=== PATIENT | female | born 1970 | race Caucasian/White ===

== ENCOUNTER 2020-06-29 18:55 | Emergency (ER) | payer MEDICAID, SELFPAY ==
[2020-06-29] VITALS (7 sets, daily range): BP systolic 110–164; BP diastolic 60–101; PULSE 88–138; RESP 16–28; TEMP -17.7–36.8; O2SAT 98–100; BMI 33.4
[2020-06-29] MEDS: Famotidine/PF 20 MG/2 ML VIAL IVPUSH (19:05)
[2020-06-29] MEDS: 0.9 % Sodium Chloride 1,000 ML 999 ML IVCONT (19:05)
[2020-06-29] MEDS: EPINEPHrine 1 MG/ML VIAL 0.3 MG IM ×2 (19:05→19:20)
[2020-06-29] MEDS: ondansetron HCL 4 MG/2 ML VIAL IVPUSH (19:20)
--- NOTE | 2020-06-29 19:24 | ED.ALLEREA ---
HPI - Allergic Reaction General Chief complaint: Allergic Reaction Stated complaint: DIFF BREATHING, ALLERGIC REACTION Time Seen by Provider: 06/29/20 19:02 Source: patient and EMS Limitations: language barrier History of Present Illness HPI narrative: 49-year-old female with history of prior anaphylaxis presents via EMS for allergic reaction. At present, patient is tachycardic, short of breath, has full body erythema and hives and his tremors. Patient is an anaphylaxis at this time. Review of systems and complete physical exam deferred at this time. MD complaint: allergic reaction and hives Onset (ago): hour(s) (Within the hour of arrival) Exposure: unknown and food Symptoms: difficulty breathing, dizziness and abdominal pain Severity: similar to previous episodes Treatment prior to arrival: none Previous Allergic Reaction History: prior ED visit(s) and anaphylaxis Related Data Previous Rx's Medication Instructions Recorded epinephrine [EpiPen 2-Christopher] 0.3 mg IM Q10M PRN #2 ea 06/29/20 famotidine [Pepcid] 20 mg PO BID 3 Days #6 tab 06/29/20 Allergies Allergy/AdvReac Type Severity Reaction Status Date / Time diphenhydramine AdvReac Shakiness Verified 06/29/20 19:23 [From Benadryl] Penicillin Allergy Unknown Swelling Uncoded 06/29/20 19:23 Review of Systems Review of Systems: Review of systems unable to be completed secondary to medical condition, note states mental condition, this an error Yes Unobtainable due to mental condition PMFSH Past Medical History Attestation statement: The following information was validated with the patient. Source: old records reviewed Medical History Anaphylactic reaction Fatty liver Social History Social History Advance Directives: No Advance Directives Information Provided: Yes Physical Exam Vital Signs: Vital Signs: Last Vital Signs Temp 98.2 F 06/29/20 19:24 Pulse 88 06/29/20 22:20 Resp 16 06/29/20 22:20 BP 110/62 06/29/20 22:20 Pulse Ox 99 06/29/20 22:20 Body Mass Index 33.4 Appearance: Alert. Oriented X3. Moderate distress. Eyes: Pupils equal, round and reactive to light. ENT: Pharynx normal. Neck: Normal inspection. Neck supple. CVS: Tachycardic heart rate and rhythm. Pulses normal. Respiratory: Moderate respiratory distress. Breath sounds wheezing Abdomen: Soft and tender to palpation diffusely Skin: Diffusely erythematous and with hives Skin warm and dry. Normal skin color. Normal skin turgor. Extremities: No lower extremity edema. Neuro: No motor deficit. No sensory deficit. Course Course Course Narrative: 49-year-old female presents via EMS for anaphylactic reaction. Dr Romero and this INSPECTOR PACKAGER at bedside immediately upon arrival, epinephrine IM, Solu-Medrol, Pepcid, and saline ordered immediately. Approximately 11 minutes after 1st dose of epinephrine, 2nd dose given, heart rate dropping into the 90s, respiration rate decreased to the low 20s, skin is now pink face no longer flushed, lungs are clear. 7:45 p.m. respiration rate 20, lung sounds clear, no rash noted, speaking in full sentences, slight tremor noted to the hands. Appearance: Alert. Oriented X3. Minimal distress. Eyes: Pupils equal, round and reactive to light. EOMI ENT: Pharynx normal. No tracheal stridor noted Neck: Normal inspection. Neck supple. CVS: Normal heart rate and rhythm. Pulses normal. Respiratory: No respiratory distress. Lung sounds clear to auscultation all lobes Abdomen: Soft and nontender. Skin: Skin warm and dry. Normal skin color. Normal skin turgor. Extremities: No lower extremity edema. Neuro: No motor deficit. No sensory deficit. At 10:00 p.m. patient still a bit tremorous, with no other symptoms. Appearance: Alert. Oriented X3. No acute distress. Eyes: Pupils equal, round and reactive to light. ENT: Pharynx normal. Neck: Normal inspection. Neck supple. CVS: Normal heart rate and rhythm. Pulses normal. Respiratory: No respiratory distress. Breath sounds normal. Abdomen: Soft and nontender. Skin: Skin warm and dry. Normal skin color. Normal skin turgor. Extremities: No lower extremity edema. Neuro: No motor deficit. No sensory deficit. Plan of care is to discharge home with prescription for EpiPen, Pepcid and for close follow-up with primary care physician and allergy testing. Patient and patient's family verbalized understanding of and agrees to plan of care discharge home. MDM - Allergic Reaction Differential Diagnosis Differential diagnosis: Likely anaphylaxis Medical Records Attestation: I reviewed the patient's medical records. Critical Care Time Critical Care Time Critical Care Time: Yes Total Critical Care Time: 65 Attestation: I have personally provided critical care time exclusive of time spent on separately billable procedures. Time includes review of laboratory data, radiology results, discussion with consultants, and monitoring for potential decompensation. Interventions were performed as documented. Discharge Plan Discharge Clinical Impression: Anaphylaxis Qualifiers: Encounter type: initial encounter Qualified Code(s): T78.2XXA - Anaphylactic shock, unspecified, initial encounter Patient Disposition: Home, Self-Care Instructions: Epinephrine (By injection), Food Allergy (ED), Anaphylaxis (ED) Additional Instructions: Se le evalu? apple reacci?n anafil?ctica a apple sustancia desconocida. Usted debe hacer un seguimiento con thompson m?dico de atenci?n primaria para la alergia. le hemos recetado plumas epi, por favor recoja esto esta noche. Utilice Pepcid cada 12 horas kd los pr?ximos 3 d?as. Si nota alguna dificultad para respirar, dificultad para respirar o cualquier s?ntoma que haya tenido antes, por favor regrese al departamento de emergencias antes del 911. Tiff por elegir sukhdeep departamento de emergencias para la evaluaci?n. Por favor, sharri un seguimiento con el m?dico de atenci?n primaria seg?n sea necesario. Regrese al servicio de urgencias para cualquier s?ntoma nuevo, preocupante o que empeore. You were evaluated for an anaphylactic reaction to unknown substance. You must follow-up with her primary care physician for allergy. we prescribed epi pens, please pick this up tonight. Please use Pepcid every 12 hours for the next 3 days. If you notice any difficulty breathing, shortness of breath, or any symptoms that you had prior please return to the emergency department by 911. Thank you for choosing this emergency department for evaluation. Please follow-up with primary care physician as needed. Return to the emergency department for any new, concerning, or worsening symptoms. Prescriptions: New famotidine [Pepcid] 20 mg tablet 20 mg PO BID 3 Days Qty: 6 RF: 0 epinephrine [EpiPen 2-Christopher] 0.3 mg/0.3 mL auto-injector 0.3 mg IM Q10M PRN (Reason: anaphylaxis) Qty: 2 RF: 0 Interventions: ED Discharge Assessment Last Done: 06/29/20 22:16 Discharge Date/Time: 06/29/20 22:21
--- NOTE | 2020-06-29 19:28 | PC.NURSE ---
Pt arrives by EMS @ 1900 for an allergic reaction. Per EMS, pt is Kazakh speaking only, reports eating a sesame cookie @ 1745 with uticaria, SOB, abdominal pain, N/V immediately following. Pt denies taking Benadryl, initially stating she was allergic, per pt, not allergic but states It doesn't work and it makes me shaky. Pt initially tachypneic, tachycardic, reported feeling hot and itchy. EMS did not medicate pt with Epi or Solumedrol MACHINE SHOP REPAIR TECHNICIAN. Pt -> O2 via NC @ 2 lpm. MINERAL RESOURCES INSPECTOR and MD at bedside, pt immediately medicated with Epi 0.3 mg IM, Solumedrol and Pepcid IV @ 190. IVF infusing. Second IV line established by MINERAL RESOURCES INSPECTOR. Pt medicated with a second dose of Epi 0.3 mg IM and given Zofran IV for nausea. 1934: Pt reports improvement in breathing and itching, relief of hives at present time. Pt feeling shaky after Epi x 2 but denies other complaints at this time. Call fuller within reach, continue to monitor.
== END 2020-06-29 22:21 | disposition home or self-care (01) ==
PROVIDERS: Emergency Provider Emergency Medicine Emergency Medical Services; PCP Internal Medicine
DX: T78.00XA Anaphylactic reaction due to unspecified food, initial encounter (principal); X58.XXXA Exposure to other specified factors, initial encounter
CPT/HCPCS: 96365; 96372; 96375; 99284; 99291; J0171; J2405; J2930

== ENCOUNTER 2023-06-07 14:18 | Outpatient (REF) | payer MEDICAID, SELFPAY ==
[2023-06-07 18:23] LABS: Folate 10.3 ng/mL (> or = 4.0); Vitamin B12 318 pg/mL (200-900)
== END 2023-06-07 14:19 | disposition home or self-care (01) ==
LOC: HO.CHCLDS 14:18
PROVIDERS: Visit Provider Internal Medicine
DX: Q38.3 Other congenital malformations of tongue (principal)
CPT/HCPCS: 36415; 82607; 82746; 84252

== ENCOUNTER → 2023-07-14 19:30 | Outpatient (BNV) | payer MEDICAID, SELFPAY | PROVIDERS: PCP Internal Medicine; Visit Provider Internal Medicine | DX: G47.33 Obstructive sleep apnea (adult) (pediatric) (principal) | CPT/HCPCS: 95810 ==

== ENCOUNTER → 2023-07-14 19:30 | Outpatient (REF) | payer MEDICAID, SELFPAY | LOC: HO.SL 19:30 | PROVIDERS: PCP Internal Medicine; Visit Provider Internal Medicine | DX: G47.33 Obstructive sleep apnea (adult) (pediatric) (principal); R06.83 Snoring | CPT/HCPCS: 95810 ==

== ENCOUNTER 2024-08-31 16:20 | Outpatient (REF) | payer MEDICAID, SELFPAY ==
--- OUTSIDE RECORDS SUMMARY | 2024-08-31 18:42 | XMS_ITS | Clinical Summary ---
Author Organization [employer] Address [address] [facility] [address] [place] [address] Care Team Providers Care Temperature Regulator Name Role Phone Alexus Johnson MD Primary Care Provider [phone] Allergies Active Allergy Reactions Criticality Noted Date Comments Dog Epithelium 08/27/2023 Other Reaction(s): Cats Penicillins Hives Low 06/15/2010 Rash Medications ibuprofen 600 MG tabletIndications :Acute pain of right knee Take 1 tablet (600 mg) by mouth every 8 (eight) hours if needed for moderate pain (knee pain). Take up to 3 times daily with a meal 30 tablet 1 3 Active Blood Pressure kitIndications:Es sential hypertension To use daily 1 kit 3 Active cyclobenzaprine (Flexeril) 10 MG tabletIndications :Flank pain Take 1 tablet (10 mg) by mouth 3 times daily for 10 days. 30 tablet 3 Active ibuprofen 800 MG tabletIndications :Flank pain TAKE 1 TABLET BY MOUTH 3 TIMES DAILY. 90 tablet 3 Active glucose 4 g chewable tabletIndications :Hypoglycemia Chew 4 tablets (16 g) if needed for low blood sugar. 50 tablet 12 3 Active Blood Glucose Monitoring Suppl (FreeStyle Lite) w/Device kitIndications:Hy poglycemia 1 EACH IF NEEDED (IF DIZZINESS/TREM OR). 1 kit 3 Active Alcohol Swabs (Alcohol Pads) 70 % padsIndications:H ypoglycemia TO use as needed prior to checking your blood sugar. 100 each 3 3 Active fexofenadine (Park) 180 MG tabletIndications :Seasonal allergies Take 1 tablet (180 mg) by mouth if needed each day (Allergies). 30 tablet 11 4 Active Semaglutide-Weigh t Management (Wegovy) 0.25 MG/0.5ML solution auto-injector 0.25 mg once a week. 2 mL 3 4 Active EPINEPHrine (EpiPen 2-Christopher) 0.3 MG/0.3ML injection syringe Inject 0.3 mg into the shoulder, thigh, or buttocks. 3 Active norethindrone (Micronor) 0.35 MG tablet Take 1 tablet by mouth Once per day. 3 Active Ketotifen Fumarate 0.035 % solutionIndicatio ns:Seasonal allergies ADMINISTER 1 DROP INTO BOTH EYES 2 TIMES DAILY. 10 mL 3 4 Active B Complex Vitamins (Vitamin B Complex) capsuleIndication s:Tongue burning sensation TAKE 1 CAPSULE BY MOUTH EVERY MORNING 30 each 11 4 Active hydrOXYzine HCl (Atarax) 50 MG tabletIndications :Primary insomnia 1 to 2 tabs at bedtime 60 tablet 3 4 Active fluticasone (Flonase) 50 MCG/ACT nasal sprayIndications: Seasonal allergies USE 1-2 SPRAYS INTO EACH NOSTRIL IN THE MORNING. SHAKE GENTLY. BEFORE FIRST USE, PRIME PUMP. AFTER USE, CLEAN TIP AND REPLACE CAP. 48 mL 3 4 Active amLODIPine (Norvasc) 5 MG tabletIndications :Essential hypertension Take 1 tablet (5 mg) by mouth Once per day. 30 tablet 11 5 07/28/19 26 Active Phentermine-Topir amate 3.75-23 MG capsule sustained-release 24 hrIndications:Cla ss 2 obesity due to excess calories without serious comorbidity with body mass index (BMI) of 35.0 to 35.9 in adult One tab a day 30 capsule 1 5 Active naproxen (Naprosyn) 500 MG tabletIndications :Sore throat Take 1 tablet (500 mg) by mouth 2 times daily. 20 tablet 5 10/01/19 25 Active Active Problems Problem Noted Date Diagnosed Date COVID-19 07/02/2022 Essential hypertension 07/02/2022 Cyst of uterus 09/08/2018 Multiple joint pain 11/13/2011 Obesity 10/23/2011 Encounters Date Type Department Care Team Description 08/31/2024 2:20 PM EDT Office Visit [facility] [address] [place] [address] Alexus Johnson MD Sore throat (Primary Dx) 08/31/2024 Travel 08/31/2024 Telephone [facility] [address] [place] [address] Alexus Johnson MD Nurse Triage 08/07/2024 Population Health Risk Score [facility] Department [address] [address] Provider, Population Health Generic 07/27/2024 3:30 PM EST Office Visit [facility] [address] [place] [address] Alexus Johnson MD Essential hypertension (Primary Dx); Class 2 obesity due to excess calories without serious comorbidity with body mass index (BMI) of 35.0 to 35.9 in adult; Dietary counseling; Exercise counseling; Screening for colon cancer; Encounter for immunization 07/27/2024 Travel 07/24/2024 Telephone [facility] [address] [place] [address] Alexus Johnson MD chart prep from Last 3 Months Immunizations Name Administration Dates Next Due Tdap 07/27/2024,03/17/2010 Family History Medical History Relation Name Comments Diabetes Mother Hypertension Mother Relation Name Status Comments Mother Social History Tobacco Use Types Packs/Day Years Used Date Smoking Tobacco: Never Passive Smoke Exposure: Never Smokeless Tobacco: Never Tobacco Cessation:Counseling Given: Not Answered Alcohol Use Standard Drinks/Week Comments Never 0 (1 standard drink = 0.6 oz pur e alcohol) Depression Answer Date Recorded Patient Health Questionnaire-9 Score 0 12/10/2023 Patient Health Questionnaire-9 Score 0 12/10/2023 Last PHQ-9: Questionnaire Data Not on file 0 12/10/2023 Housing Stability Answer Date Recorded What is your housing situation today? Not on dianna e 07/27/[address] you li ve. Do you have problems with any of the following? None of the above 07/27/2024 Food Insecurity Answer Date Recorded Within the past 12 months, y ou worried that your food would run out before you got money to buy more: Never True 07/27/2024 Within the past 12 months,th e food you bought just didn't last and you didn't have enough money to get more: Never True 07/2024 Transportation Answer Date Recorded In the past 12 months, has l ack of transportation kept you from medical appts, meetings, work or from getting things needed for daily living? No 07/27/2024 Utilities Answer Date Recorded In the past 12 months, has t he electric, gas, oil or water company threatened to shut off services in your home? No 07/27/2024 Depression Answer Date Recorded Patient Health Questionnaire-2 Score 0 12/10/2023 Internet Access Answer Date Recorded Internet Access Q1 Yes 07/27/2024 Internet Access Q2 Not on file 07/27/2024 Comments Unknown Sex and Gender Information Value Date Recorded Sex Assigned at Female 03/26/2022 10:20 AM EDT Legal Sex Female 10:20 AM EDT Gender Identity Female 03/26/2022 10:20 AM EDT Sexual Orientation Straight 03/26/2022 10 :20 AM EDT Last Filed Vital Signs Vital Sign Reading Time Taken Comments Blood Pressure 144/91 08/31/2024 2:29 PM EDT Pulse 92 08/31/2024 2:29 PM EDT Temperature 36.7 ??C (98 ??F) 08/31/2024 2:29 PM EDT Respiratory Rate 20 08/31/2024 2:29 PM EDT Oxygen Saturation 97% 08/31/2024 2:29 PM EDT Inhaled Oxygen Concentration - - Weight 82.6 kg (182 lb) 07/27/2024 3:24 PM EST Height 154 cm (5' 0.63 ) 07/27/2024 3:24 PM EST Body Mass Index 34.81 07/27/2024 3:24 PM EST Plan of Treatment Health Maintenance Due Date Last Done Comments CT Colonography 1969 Colonoscopy 1969 Colorectal Cancer Screening 1969 FIT DNA/Cologuard 1969 FIT 1969 FOBT 1969 HIV Screening 1969 Sigmoidoscopy 1969 Alcohol/Substance Use Screening 1981 Hepatitis B Vaccines (1 of 3 - 19+ 3-dose series) 1988 Zoster Vaccines (1 of 2) 12/30/2019 Cervical Cancer Screening 04/23/2023 HPV/Cotest 04/23/2023 04/23/2022, 08/17/2019 Pap Smear 04/23/2023 04/23/2022, 08/17/2019 COVID-19 Vaccine (1 - season) 2024 Influenza Vaccine (#1) 2024 SDOH Screening 06/21/2024 06/21/2023 Mammogram 07/15/2024 01/13/2024, 0312/2023, 01/25/2023, Additional history exists Depression Screening 12/09/2024 12/10/2023, 12/10/19 24 Tobacco Screening 12/09/2024 12/10/2023 Pneumococcal Vaccine: 50+ Years (1 of 1 - PCV) 07/27/2025 Postponed from 12/30/2019 (Patient Refused) Lipid Panel 01/18/2026 01/18/2021, 01/13/2020 DTaP/Tdap/Td Vaccines (3 - Td or Tdap) 07/27/2034 07/27/2024, 03/17/2010 RSV Patients and Patients Aged 60 years or older (1 - 1-dose 75+ series) 2044 Hepatitis C Screening Completed 02/11/2020 HIB Vaccines Aged Out No longer eligi ble based on patient's age to complete this topic HPV Vaccines Aged Out No longer eligi ble based on patient's age to complete this topic Hepatitis A Vaccines Aged Out No long er eligible based on patient's age to complete this topic IPV Vaccines Aged Out No longer eligi ble based on patient's age to complete this topic Meningococcal Vaccine Aged Out No pushpa tuyet eligible based on patient's age to complete this topic RSV under 20 months Aged Out No longe r eligible based on patient's age to complete this topic Rotavirus Vaccines Aged Out No longer eligible based on patient's age to complete this topic Procedures Procedure Name Priority Date/Time Associated Diagnosis Comments POCT INFLUENZA B Routine 08/31/2024 4:22 PM EDT Sore throat POCT INFLUENZA A Routine 08/31/2024 4:22 PM EDT Sore throat POCT RAPID STREP A Routine 08/31/2024 4: 21 PM EDT Sore throat POCT RAPID COVID ANTIGEN Routine 08/31/2024 4:20 PM EDT Sore throat HM MAMMOGRAPHY Routine 01/13/2024 HM PAP/HPV Routine 04/23/2022 LIPID PANEL, STANDARD Routine 01/18/2021 8:32 AM EDT ZZZ HISTORICAL HEPATITIS C AB W/REFL TO HCV RNA, QN, PCR Routine 02/11/2020 9:32 AM EDT from Last 3 Months or Most Recently Relevant to Health Maintenance Results * POCT Rapid Influenza B OSOM (08/31/2024 4:22 PM EDT) Rapid Influenza B Ag Negative Negative, Indeterminate QC Media Lot # [id number] Lot# Expiration Date Comment:controls passed Swab 08/31/2024 4:22 PM EDT Alexus Johnson MD POINT OF CARE TEST ENTER/ED IT ORDERABLES Final Result * POCT Rapid Influenza A OSOM (08/31/2024 4:22 PM EDT) Rapid Influenza A Ag Negative Negative, Indeterminate QC Media Lot # [id number] Lot# Expiration Date , Comment:controls passed Swab Nasopharyngeal structure / Unknown 08/31/2024 4:22 PM EDT Alexus Johnson MD POINT OF CARE TEST ENTER/ED IT ORDERABLES Final Result * POCT Rapid Strep A OSOM (08/31/2024 4:21 PM EDT) [facility] Rapid Strep A Screen Negative Negative, None Detected QC Media Lot # [id number] Lot# Expiration Date ,032 Comment:controls passed Swab 08/31/2024 4:21 PM EDT Alexus Johnson MD POINT OF CARE TEST ENTER/ED IT ORDERABLES Final Result * POCT Rapid Covid-19 BinaxNOW (08/31/2024 4:20 PM EDT) [facility] Rapid COVID Ag Negative QC Media Lot # [id number] Comment:controls passed Lot# Expiration Date ,912 Swab 08/31/2024 4:20 PM EDT Alexus Johnson MD POINT OF CARE TEST ENTER/ED IT ORDERABLES Final Result * Mammography (01/13/2024) [facility] Mammogram BIRADS 2 Normal, Abnormal, BIRADS 1 , BIRADS 2 Anatomical Region Laterality Modality Other Historical Provider HEALTH MAINTENANCE Final Result * Pap Smear (04/23/2022) [facility] Pap Negative for intraephithelial lesion or malignancy Negative for intraephithelial lesion or malignancy, Other HPV Undetected Undetected, Indeterminate, Quantitative, Not Detected Historical Provider HEALTH MAINTENANCE Final Result * (ABNORMAL) LIPID PANEL, STANDARD (01/18/2021 8:32 AM EDT) [facility] Chol/HDLC Ratio 3.4 <5.0 (calc) [facility] Cholesterol, Total 208(H) <200 mg/dL [facility] HDL Cholesterol 61 > OR = 50 mg/dL [facility] LDL Cholesterol 121(H) mg/dL (calc) [facility] Comment: Reference range: <100 ?? Desirable range <100 mg/dL for primary prevention; ?? <70 mg/dL for patients with CHD or diabetic patients ?? with > or = 2 CHD risk factors. ?? LDL-C is now calculated using the Charles ?? calculation, which is a validated novel method providing ?? better accuracy than the Friedewald equation in the ?? estimation of LDL-C. ?? Reji ALAN et al. KIARRA. 2013;310(19): 8694-8194 ?? (http://Work4ce.me.Ubookoo/faq/IMP082) Non-HDL Cholesterol 147(H) <130 mg/dL (calc) [facility] Comment: For patients with diabetes plus 1 major ASCVD risk ?? factor, treating to a non-HDL-C goal of <100 mg/dL ?? (LDL-C of <70 mg/dL) is considered a therapeutic ?? option. Triglycerides 147 <150 mg/dL [facility] 01/18/2021 8:32 AM EDT Alexus Johnson MD LAB BLOOD ORDERABLES Final Result Performing Organization Address [facility] de Phone Number [facility] [address] * HEPATITIS C AB W/REFL TO HCV RNA, QN, PCR (02/11/2020 9:32 AM EDT) HEPATITIS C ANTIBODY NON-REACT ZENAIDA NON-REACT ZENAIDA [facility] INDEX 0.01 <1.00 [facility] Comment: ?? HCV antibody was non-reactive. There is no laboratory ?? evidence of HCV infection. ?? In most cases, no further action is required. However, if recent HCV exposure is suspected, a test for HCV RNA (test code 03474) is suggested. ?? For additional information please refer to http://Work4ce.me.Shelfari/faq/XPF27x7 (This link is being provided for informational/ educational purposes only.) ?? 02/11/2020 9:32 AM EDT us Alexus Johnson MD HISTORICAL/NON ORDERABLE LA BS Final Result Performing Organization Address [facility] Co de Phone Number [facility] [address] from Last 3 Months or Most Recently Relevant to Health Maintenance Insurance * Guarantor: Radha Cantor Account Type Relation to Patient Date of Phone Billing Address Personal/Family Self 75 [address] Care Teams Temperature Regulator Relationship Specialty Start Date End Date Alexus Johnson MD [address] [place] [address] MARCE [id number] PCP - General Internal Medicine 06/03/13
--- OUTSIDE RECORDS SUMMARY | 2024-08-31 18:42 | XMS_ITS | Encounter Summary ---
Author Organization [employer] Address [address] [facility] [address] [place] [address] Care Team Providers Care Boilermaker Assembly And Erection Name Role Phone Alexus Johnson MD Primary Care Provider [phone] Encounter Details Date Type Department Care Team (Latest Contact Info) Description 08/31/2024 Travel Social History Tobacco Use Types Packs/Day Years Used Date Smoking Tobacco: Never Passive Smoke Exposure: Never Smokeless Tobacco: Never Alcohol Use Standard Drinks/Week Comments Never 0 [...] Orientation Straight 03/26/2022 10 :20 AM EDT documented as of this encounter Plan of Treatment Not on file documented as of this encounter Visit Diagnoses Not on filedocumented in this encounter Additional Health Concerns Assessment Noted Time PHQ-9 Depression Total Score: 0 12/10/19 24 2:49 PM EDT documented as of this encounter Care Teams Boilermaker Assembly And Erection Relationship Specialty Start Date End Date Alexus Johnson MD [address] [place] [address] PCP - General Internal Medicine 06/03/13 documented as of this encounter
--- OUTSIDE RECORDS SUMMARY | 2024-08-31 18:42 | XMS_ITS | Encounter Summary ---
Author Organization [employer] Address [address] [address] Care Team Providers Care Rolling Chair Pusher Name Role Phone Alexus Johnson MD Primary Care Provider [phone] Reason for Visit * Reason Onset Date Comments Call Back Request 09/10/2023 Encounter Details Date Type Department Care Team ([facility] st Contact Info) Description 09/10/2023 Telephone [facility] MEDICINE [address] [place] [address] Alexus Johnson MD [address] [place], [place] [phone] Call Back Request Social History Tobacco Use Types Packs/Day Years Used Date Smoking Tobacco: Never Passive Smoke Exposure: Never Smokeless Tobacco: Never Alcohol Use Standard Drinks/Week Comments Never 0 (1 standard drink = 0.6 oz pur e alcohol) Housing Stability Answer Date Recorded What is your housing situation today? I have ehsan henri 06/21/[address] you li ve. Do you have problems with any of the following? None of the above 06/21/2023 Food Insecurity Answer Date Recorded Within the past 12 months, y ou worried that your food would run out before you got money to buy more: Never True 06/21/2023 Within the past 12 months,th e food you bought just didn't last and you didn't have enough money to get more: Never True Transportation Answer Date Recorded In the past 12 months, has l ack of transportation kept you from medical appts, meetings, work or from getting things needed for daily living? No 06/21/2023 Utilities Answer Date Recorded In the past 12 months, has t he electric, gas, oil or water company threatened to shut off services in your home? No 06/21/2023 Comments Unknown Sex and Gender Information Value Date Recorded Sex Assigned at Female 03/26/2022 10:20 AM EDT Legal Sex Female 10:20 AM EDT Gender Identity Female 03/26/2022 10:20 AM EDT Sexual Orientation Straight 03/26/2022 10 :20 AM EDT documented as of this encounter Miscellaneous Notes * Telephone Encounter - Leonardo Ley - 09/10/2023 2:27 PM EDT Tc from patient calling states was advised to return call to [facility] however advertising copywriter does not see anything documented on patients chart documented in this encounter Plan of Treatment Not on file documented as of this encounter Visit Diagnoses Not on filedocumented in this encounter Care Teams Rolling Chair Pusher Relationship Specialty Start Date End Date Alexus Johnson MD [address] [place] [address] PCP - General Internal Medicine 06/03/13 documented as of this encounter
--- OUTSIDE RECORDS SUMMARY | 2024-08-31 18:42 | XMS_ITS | Encounter Summary ---
Author Organization [employer] Address 75 [facility] 7t [place] [address] Care Team Providers Care Washing Machine Mechanic Name Role Phone Alexus Johnson MD Primary Care Provider [phone] Encounter Details Date Type Department Care Team ([facility] st Contact Info) Description 09/13/2023 Orders Only [facility] CHC MED & PEDS [address] [place] [address] Alexus Johnson MD 505 [place] [address] Social History Tobacco Use Types Packs/Day Years [...] on filedocumented in this encounter Care Teams Washing Machine Mechanic Relationship Specialty Start Date End Date Alexus Johnson MD [address] [place] [address] PCP - General Internal Medicine 06/03/13 documented as of this encounter
--- OUTSIDE RECORDS SUMMARY | 2024-08-31 18:42 | XMS_ITS | Encounter Summary ---
Author Organization [employer] Address [address] [address] Care Team Providers Care Director Child Development Center Name Role Phone Alexus Johnson MD Primary Care Provider [phone] Reason for Visit * Reason Comments Sore Throat Encounter Details Date Type Department Care Team ([facility] st Contact Info) Description 08/31/2024 2:20 PM EDT Office Visit [facility] CHC MED & PEDS [address] [place] [address] Alexus Johnson MD 505 [place] [address] Sore throat (Primary Dx) Social History Tobacco Use Types Packs/Day Years [...] AM EDT documented as of this encounter Last Filed Vital Signs Vital Sign Reading Time Taken Comments Blood Pressure 144/91 08/31/2024 2:29 PM EDT Pulse 92 08/31/2024 2:29 PM EDT Temperature 36.7 ??C (98 ??F) 08/31/2024 2:29 PM EDT Respiratory Rate 20 08/31/2024 2:29 PM EDT Oxygen Saturation 97% 08/31/2024 2:29 PM EDT Inhaled Oxygen Concentration - - Weight - - Height - - Body Mass Index - - documented in this encounter Plan of Treatment Scheduled Orders Name Type Priority Associated Diagnoses Orde r Schedule Culture, Throat Microbiology Routine Sore throat Ordered: 08/31/2024 documented as of this encounter Procedures Procedure Name Priority Date/Time Associated Diagnosis Comments POCT INFLUENZA B Routine 08/31/2024 4:22 PM EDT Sore throat POCT INFLUENZA A Routine 08/31/2024 4:22 PM EDT Sore throat POCT RAPID STREP A Routine 08/31/2024 4: 21 PM EDT Sore throat POCT RAPID COVID ANTIGEN Routine 08/31/2024 4:20 PM EDT Sore throat documented in this encounter Results * POCT Rapid Influenza B OSOM (08/31/2024 4:22 PM EDT) [facility] Rapid Influenza B Ag Negative Negative, Indeterminate QC Media Lot # [id number] Lot# Expiration Date ,025 Comment:controls passed Swab 08/31/2024 4:22 PM EDT Alexus Johnson MD POINT OF CARE TEST ENTER/ED IT ORDERABLES Final Result * POCT Rapid Influenza A OSOM (08/31/2024 4:22 PM EDT) [facility] Rapid Influenza A Ag Negative Negative, Indeterminate QC Media Lot # [id number] Lot# Expiration Date ,025 Comment:controls passed Swab Nasopharyngeal structure / Unknown 08/31/2024 4:22 PM EDT Alexus Johnson MD POINT OF CARE TEST ENTER/ED IT ORDERABLES Final Result * POCT Rapid Strep A OSOM (08/31/2024 4:21 PM EDT) [facility] Rapid Strep A Screen Negative Negative, None Detected QC Media Lot # [id number] Lot# Expiration Date ,025 Comment:controls passed Swab 08/31/2024 4:21 PM EDT Alexus Johnson MD POINT OF CARE TEST ENTER/ED IT ORDERABLES Final Result * POCT Rapid Covid-19 BinaxNOW (08/31/2024 4:20 PM EDT) [facility] Rapid COVID Ag Negative QC Media Lot # [id number] Comment:controls passed Lot# Expiration Date 7,026 Swab 08/31/2024 4:20 PM EDT Alexus Johnson MD POINT OF CARE TEST ENTER/ED IT ORDERABLES Final Result documented in this encounter Visit Diagnoses Diagnosis Sore throat- Primary Acute pharyngitis documented in this encounter Additional Health Concerns Assessment Noted Time PHQ-9 Depression Total Score: 0 12/10/19 24 2:49 PM EDT documented as of this encounter Care Teams Director Child Development Center Relationship Specialty Start Date End Date Alexus Johnson MD [address] [place] [address] PCP - General Internal Medicine 06/03/13 documented as of this encounter
--- OUTSIDE RECORDS SUMMARY | 2024-08-31 18:42 | XMS_ITS | Encounter Summary ---
Author Organization [employer] Address [address] [address] Care Team Providers Care Business Administration Instructor Name Role Phone Alexus Johnson MD Primary Care Provider [phone] Reason for Visit * Reason Onset Date Comments Nurse Triage 08/31/2024 Encounter Details Date Type Department Care Team ([facility] st Contact Info) Description 08/31/2024 Telephone [facility] MEDICINE [address] [place] [address] Alexus Johnson MD [address] [place], [place] [phone] Nurse Triage Social History Tobacco Use Types Packs/Day Years [...] encounter Miscellaneous Notes * Telephone Encounter - Pilar George RN - 08/31/2024 10:20 AM EDT No welder pipe making needed as 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 Call returned to Radha Bustos to triage below. Reports having ST x 3 days. Denies any nasal congestion, TAMEZ, ear pain or cough.Mild chills. No recorded temp. No homekit for COVID-19. Pt has used OTC advil for pain. No salt water garglesdone. Per pt having pain with swallowing but able to swallow. Pt advised of disposition, agrees to SDC with [facility] provider. Protocol Used: Sore Throat (Adult) Protocol-Based Disposition: See in Office or Video Visit Today Future Appointments Date Time Provider Department Center 08/31/2024 2:20 PM [facility] Insurance verified as active per Real Time Eligibility in [facility]. Video visit offer not recorded Positive Triage Question: * Severe sore throat pain * All higher-acuity triage questions were negative Care Advice Discussed: * Reassurance and Education - Sore Throat * Sore Throat * Soft Diet * Drink Plenty of Liquids * Pain and Fever Medicines * Reasons To Call Back - You become worse * Telephone Encounter - Silverio Oliver - 08/31/2024 9:34 AM EDT Symptom: Sore Throat Outcome: Schedule an urgent appointment (within 4 hours) or talk to a nurse or provider soon Reason: Trouble drinking The caller accepted this outcome. documented in this encounter Plan of Treatment Not on file documented as of this encounter Visit Diagnoses Not on filedocumented in this encounter Additional Health Concerns Assessment Noted Time PHQ-9 Depression Total Score: 0 12/10/19 24 2:49 PM EDT documented as of this encounter Care Teams Business Administration Instructor Relationship Specialty Start Date End Date Alexus Johnson MD [address] [place] [address] PCP - General Internal Medicine 06/03/13 documented as of this encounter
--- OUTSIDE RECORDS SUMMARY | 2024-08-31 18:42 | XMS_ITS | Encounter Summary ---
Author Organization [employer] Address [address] [place] [address] Care Team Providers Care Inspector Machine Parts Name Role Phone Alexus Johnson MD Primary Care Provider [phone] Reason for Referral * Imaging (Routine) - Closed Specialty Diagnoses / Procedures Referred By Martín resendez Referred To Contact Radiology Diagnoses Abnormal mammogram Procedures BI Mammogram Diagnostic Left Alexus Johnson MD [address] [place] [address] Phone: tel: fax: [facility] fax: Referral ID Status Reason Start Date Expiration Date Visits Re quested Visits Authorized [id number] Closed 03/08/2023 03/07/2024 1 1 Encounter Details Date Type Department Care Team ([facility] st Contact Info) Description 03/08/2023 Orders Only [facility] CHC MED & PEDS [address] [place] [address] Alexus Johnson MD [address] [place] [address] Abnormal mammogram (Primary Dx) Social History Tobacco Use Types Packs/Day Years Used Date Smoking Tobacco: Never Passive Smoke Exposure: Never Smokeless Tobacco: Never Alcohol Use Standard Drinks/Week Comments Never 0 (1 standard drink = 0.6 oz pur e alcohol) Comments Unknown Sex and Gender Information Value Date Recorded Sex Assigned at Female 03/26/2022 10:20 AM EDT Legal Sex Female 10:20 AM EDT Gender Identity Female 03/26/2022 10:20 AM EDT Sexual Orientation Straight 03/26/2022 10 :20 AM EDT documented as of this encounter Plan of Treatment Not on file documented as of this encounter Procedures Procedure Name Priority Date/Time Associated Diagnosis Comments BI MAMMOGRAM DIAGNOSTIC LEFT Routine 08/02/2023 Abnormal mammogram documented in this encounter Results * BI Mammogram Diagnostic Left (08/02/2023) Anatomical Region Laterality Modality Breast Left Mammography Narrative 08/02/2023 Bi-rads 1 -resume annual screening in 6 month Alexus Johnson MD IMG BI PROCEDURES Final Res ult documented in this encounter Visit Diagnoses Diagnosis Abnormal mammogram- Primary Abnormal mammogram, unspecified documented in this encounter Care Teams Inspector Machine Parts Relationship Specialty Start Date End Date Alexus Johnson MD [address] [place] [address] PCP - General Internal Medicine 06/03/13 documented as of this encounter
--- OUTSIDE RECORDS SUMMARY | 2024-08-31 18:42 | XMS_ITS | Encounter Summary ---
Author Organization [employer] Address [address] [address] Care Team Providers Care Childcare Director Name Role Phone Alexus Johnson MD Primary Care Provider [phone] Encounter Details Date Type Department Care Team ([facility] st Contact Info) Description 02/28/2023 Abstract [facility] MEDICINE [address] [place] [address] Alycia Boothe Social History Tobacco Use Types Packs/Day Years [...] on filedocumented in this encounter Care Teams Childcare Director Relationship Specialty Start Date End Date Alexus Johnson MD 505 [facility] [place] [address] PCP - General Internal Medicine 06/03/13 documented as of this encounter
--- OUTSIDE RECORDS SUMMARY | 2024-08-31 18:42 | XMS_ITS | Encounter Summary ---
Author Organization [employer] Address [address] [address] Care Team Providers Care It Desktop Support Technician Name Role Phone Alexus Johnson MD Primary Care Provider [phone] Reason for Visit * Reason Onset Date Comments Referral 06/11/2023 Encounter Details Date Type Department Care Team ([facility] st Contact Info) Description 06/11/2023 Telephone [facility] CHC MED & PEDS [address] [place] [address] Alexus Johnson MD [address] [place] [address] Referral Social History Tobacco Use Types Packs/Day Years [...] encounter Miscellaneous Notes * Telephone Encounter - Karrie Prieto RN - 06/11/2023 12:05 PM EST Please review and advise if pt can be referred to [facility] eye care. Unsure if it is appropriate. * Telephone Encounter - Ermias Moe - 06/11/2023 11:08 AM EST Tc from pt requesting if referral for Ophthalmology could be sent to another Facility due to [facility] not having availability or accepting new Patients at this time. Pt is requesting if she could be referred to [facility] V[facility]. Please contact pt @ [phone] documented in this encounter Plan of Treatment Not on file documented as of this encounter Visit Diagnoses Diagnosis Essential hypertension- Primary Unspecified essential hypertension documented in this encounter Care Teams It Desktop Support Technician Relationship Specialty Start Date End Date Alexus Johnson MD [address] [place] [address] PCP - General Internal Medicine 06/03/13 documented as of this encounter
== END 2024-08-31 16:21 | disposition home or self-care (01) ==
LOC: HO.CHCLNP 16:20
PROVIDERS: Visit Provider Internal Medicine
DX: J02.9 Acute pharyngitis, unspecified (principal)
CPT/HCPCS: 87070

== ENCOUNTER 2025-02-02 08:47 | Outpatient (REF) | payer MEDICAID, SELFPAY ==
--- OUTSIDE RECORDS SUMMARY | 2025-02-02 09:56 | XMS_ITS | Encounter Summary ---
Author Organization [employer] Address [address] [place] [address] Care Team Providers Care Clam Sorter Name Role Phone Alexus Johnson MD Primary Care Provider [phone] Reason for Referral * Imaging (Routine) - Closed Specialty Diagnoses / Procedures Referred By Martín resendez Referred To Contact Radiology Diagnoses Abnormal mammogram Procedures BI Mammogram Diagnostic Left Alexus Johnson MD [address] [place] [address] Phone: tel: fax: [facility] fax: Referral ID Status Reason Start Date Expiration Date Visits Re quested Visits Authorized [id number] Closed 03/08/2023 03/07/2024 1 1 Encounter Details Date Type Department Care Team ([facility] st Contact Info) Description 03/08/2023 Orders Only [facility] CHC MED & PEDS [address] [place] [address] Alexus Johnson MD [address] [place] [address] Abnormal mammogram (Primary Dx) Social History Tobacco [...] as of this encounter Plan of Treatment Upcoming Encounters Date Type Department Care Team ([facility] st Contact Info) Description 02/23/2025 3:00 PM EDT Clinical Support [facility] MED & PEDS [address] [place] [address] documented as of this encounter Procedures Procedure Name Priority Date/Time Associated Diagnosis Comments BI MAMMOGRAM DIAGNOSTIC LEFT Routine 08/02/2023 Abnormal mammogram documented in this encounter Results * BI Mammogram Diagnostic Left (08/02/2023) Anatomical Region Laterality Modality Breast Left Mammography Narrative 08/02/2023 Bi-rads 1 -resume annual screening in 6 month us Alexus Johnson MD IMG BI PROCEDURES Final Res ult documented in this encounter Visit Diagnoses Diagnosis Abnormal mammogram- Primary Abnormal mammogram, unspecified documented in this encounter Care Teams Clam Sorter Relationship Specialty Start Date End Date Alexus Johnson MD [address] [place] [address] PCP - General Internal Medicine 06/03/13 documented as of this encounter
--- OUTSIDE RECORDS SUMMARY | 2025-02-02 09:56 | XMS_ITS | Encounter Summary ---
Author Organization [employer] Address [address] [place] [address] Care Team Providers Care Embedded Systems Engineer Name Role Phone Alexus Johnson MD Primary Care Provider [phone] Reason for Visit * Reason Onset Date Comments Referral 06/11/2023 Encounter Details Date Type Department Care Team ([facility] st Contact Info) Description 06/11/2023 Telephone [facility] CHC MED & PEDS [address] [place] [address] Alexus Johnson MD [address] [place] [address] Referral Social History Tobacco Use Types Packs/Day [...] advise if pt can be referred to [facility] eye care. Unsure if it is appropriate. * Telephone Encounter - Ermias Moe - 06/11/2023 11:08 AM EST Tc from pt requesting if referral for Ophthalmology could be sent to another Facility due to [facility] not having availability or accepting new Patients at this time. Pt is requesting if she could be referred to [facility] V[facility]. Please contact pt @ [phone] documented in this encounter Plan of Treatment Upcoming Encounters Date Type Department Care Team (Late st Contact Info) Description 02/23/2025 3:00 PM EDT Clinical Support [facility] CHC MED & PEDS [address] [place] [address] documented as of this encounter Visit Diagnoses Diagnosis Essential hypertension- Primary Unspecified essential hypertension documented in this encounter Care Teams Embedded Systems Engineer Relationship Specialty Start Date End Date Alexus Johnson MD [address] [place] [address] PCP - General Internal Medicine 06/03/13 documented as of this encounter
--- OUTSIDE RECORDS SUMMARY | 2025-02-02 09:56 | XMS_ITS | Encounter Summary ---
Author Organization [employer] Address 75 [facility] [address] [place] [address] Care Team Providers Care Rn Child Name Role Phone lAexus Johnson MD Primary Care Provider [phone] Encounter Details Date Type Department Care Team ([facility] Contact Info) Description 09/13/2023 Orders Only [facility] CHC MED & PEDS [address] [place] [address] Alexus Johnson MD [address] [place] [address] Social History Tobacco Use Types Packs/Day Years Used Date Smoking Tobacco: Never Passive Smoke Exposure: Never Smokeless Tobacco: Never Alcohol Use Standard Drinks/Week Comments Never 0 (1 standard drink = 0.6 oz pur e alcohol) Housing Stability Answer Date Recorded What is your housing situation today? I have ehsan sing 06/21/[address] you li [...] Description 02/23/2025 3:00 PM EDT Clinical Support [facility] MED & PEDS [address] [place] [address] documented as of this encounter Procedures Procedure Name Priority Date/Time Associated Diagnosis Comments CULTURE, THROAT Routine 08/31/2024 4:00 PM EDT documented in this encounter Results * Culture, Throat (08/31/2024 4:00 PM EDT) Throat Structure of anterior portion of neck / Unknown 08/31/2024 4:00 PM EDT 08/31/2024 5:40 PM EDT Comment:Throat Narrative [facility] - 09/02/2024 8:22 AM EDT Throat Culture No Group A Beta-hemolytic Streptococci isolated. Specimen Source: Throat Alexus Johnson MD LAB MICROBIOLOGY - GENERAL ORDERABLES Final Result [facility] [address] [place] [address] [phone] documented in this encounter Visit Diagnoses Not on filedocumented in this encounter Care Teams Rn Child Relationship Specialty Start Date End Date Alexus Johnson MD [address] [place] [address] PCP - General Internal Medicine 06/03/13 documented as of this encounter
--- OUTSIDE RECORDS SUMMARY | 2025-02-02 09:56 | XMS_ITS | Encounter Summary ---
Author Organization [employer] [facility] Address [address] [place] [address] Care Team Providers Care Associate Counsel Name Role Phone Alexus Johnson MD Primary Care Provider [phone] Encounter Details Date Type Department Care Team (Late st Contact Info) Description 02/28/2023 Abstract [facility] MEDICINE [address] [place] [address] Alycia Boothe Social History Tobacco Use Types [...] Description 02/23/2025 3:00 PM EDT Clinical Support [facility] CHC MED & PEDS [address] [place] [address] documented as of this encounter Visit Diagnoses Not on filedocumented in this encounter Care Teams Associate Counsel Relationship Specialty Start Date End Date Alexus Johnson MD [address] [place] [address] PCP - General Internal Medicine 06/03/13 documented as of this encounter
--- OUTSIDE RECORDS SUMMARY | 2025-02-02 09:56 | XMS_ITS | Encounter Summary ---
Author Organization [employer] Address 75 [facility] 7t [place] [address] Care Team Providers Care Taker Off Name Role Phone Alexus Johnson MD Primary Care Provider [phone] Encounter Details Date Type Department Care Team ([facility] st Contact Info) Description 02/02/2025 Orders Only [facility] CHC MED & PEDS [address] [place] [address] Alexus Johnson MD [address] [place] [address] Essential hypertension (Primary Dx) Social History Tobacco Use Types Packs/Day Years Used Date Smoking Tobacco: Never Passive Smoke Exposure: Never Alcohol Use Standard Drinks/Week Comments Never 0 (1 standard drink = 0.6 oz pur e alcohol) Depression Answer Date Recorded Patient Health Questionnaire-9 Score 4 01/15/2025 Patient Health Questionnaire-9 Score 4 01/15/2025 Last PHQ-9: Questionnaire Data Not on file 0 01/15/2025 Housing Stability Answer Date Recorded What is your housing situation today? I have ehsan álvarez 01/15/[address] you li ve. Do you have problems with any of the following? None of the above 01/15/2025 Food Insecurity Answer Date Recorded Within the [...] Answer Date Recorded Patient Health Questionnaire-2 Score 2 01/15/2025 Internet Access Answer Date Recorded Internet Access [...] Description 02/23/2025 3:00 PM EDT Clinical Support [facility] MED & PEDS [address] [place] [address] Scheduled Orders Name Type Priority Associated Diagnoses Orde r Schedule CBC auto differential Lab Routine Essential hypertension Expected: 02/02/2025 (Approximate), Expires: 02/02/2026 Comprehensive Metabolic Panel Lab Routine Essential hypertension Expected: 02/02/2025 (Approximate), Expires: 02/02/2026 Lipid Panel, Standard Lab Routine Essential hypertension Expected: 02/02/2025 (Approximate), Expires: 02/02/2026 TSH with Reflex to Free T4 Lab Routine Essential hypertension Expected: 02/02/2025 (Approximate), Expires: 02/02/2026 documented as of this encounter Visit Diagnoses Diagnosis Essential hypertension- Primary Unspecified essential hypertension documented in this encounter Additional Health Concerns Assessment Noted Time PHQ-9 Depression Total Score: 4 01/16/20 25 4:19 PM EDT documented as of this encounter Care Teams Taker Off Relationship Specialty Start Date End Date Alexus Johnson MD [address] [place] [address] PCP - General Internal Medicine 06/03/13 documented as of this encounter
--- OUTSIDE RECORDS SUMMARY | 2025-02-02 09:56 | XMS_ITS | Encounter Summary ---
Author Organization [employer] Address [address] [address] Care Team Providers Care Harnessmaker Apprentice Name Role Phone Alexus Johnson MD Primary Care Provider [phone] Reason for Visit * Reason Onset Date Comments Call Back Request 09/10/2023 Encounter Details Date Type Department Care Team ([facility] st Contact Info) Description 09/10/2023 Telephone [facility] MEDICINE [address] [place] [address] Alexus Johnson MD [address] [place], [place] [phone] Call Back Request Social History Tobacco Use [...] states was advised to return call to [facility] however comic book writer does not see anything documented on patients chart documented in this encounter Plan of Treatment Upcoming Encounters Date Type Department Care Team (Late st Contact Info) Description 02/23/2025 3:00 PM EDT Clinical Support [facility] MED & PEDS [address] [place] [address] documented as of this encounter Visit Diagnoses Not on filedocumented in this encounter Care Teams Harnessmaker Apprentice Relationship Specialty Start Date End Date Alexus Johnson MD [address] [place] [address] PCP - General Internal Medicine 06/03/13 documented as of this encounter
--- OUTSIDE RECORDS SUMMARY | 2025-02-02 09:56 | XMS_ITS | Encounter Summary ---
Author Organization [employer] Address 75 [facility] [address] [place] [address] Care Team Providers Care Compliance Vice President Name Role Phone Alexus Johnson MD Primary Care Provider [phone] Encounter Details Date Type Department Care Team ([facility] st Contact Info) Description 01/26/2025 Orders Only [facility] MED & PEDS [address] [place], [place] [phone] Provider, MD Monie Social History Tobacco Use Types Packs/Day Years [...] housing situation today? I have ehsan henri 01/15/[address] you li [...] Upcoming Encounters Date Type Department Care Team ([facility] st Contact Info) Description 02/23/2025 3:00 PM EDT Clinical Support [facility] MED & PEDS [address] [place] [address] documented as of this encounter Procedures Procedure Name Priority Date/Time Associated Diagnosis Comments HM MAMMOGRAPHY Routine 01/23/2025 11:46 AM EDT documented in this encounter Results * Hm Mammography (01/23/2025 11:46 AM EDT) Anatomical Region Laterality Modality Other us Historical Provider HEALTH MAINTENANCE Final Result documented in this encounter Visit Diagnoses Not on filedocumented in this encounter Additional Health Concerns Assessment Noted Time PHQ-9 Depression Total Score: 4 01/16/20 25 4:19 PM EDT documented as of this encounter Care Teams Compliance Vice President Relationship Specialty Start Date End Date Alexus Johnson MD [address] [place] [address] PCP - General Internal Medicine 06/03/13 documented as of this encounter
--- OUTSIDE RECORDS SUMMARY | 2025-02-02 09:56 | XMS_ITS | Clinical Summary ---
Author Organization [employer] Address 75 [facility] [address] [place] [address] Care Team Providers Care Coverage Analyst Name Role Phone Alexus Johnson MD Primary Care Provider [phone] Allergies Active Allergy Reactions Criticality Noted Date Comments Dog Epithelium 08/27/2023 Other Reaction(s): Cats Penicillins Hives Low 06/15/2010 Rash Medications ibuprofen 600 MG tabletIndicatio ns:Acute pain of right knee Take 1 tablet (600 mg) by mouth every 8 (eight) hours if needed for moderate pain (knee pain). Take up to 3 times daily with a meal 30 tablet 1 06/12/19 23 Active Blood Pressure kitIndications: Essential hypertension To use daily 1 kit 07/20/19 23 Active cyclobenzaprine (Flexeril) 10 MG tabletIndicatio ns:Flank pain Take 1 tablet (10 mg) by mouth 3 times daily for 10 days. 30 tablet 07/31/19 23 Active ibuprofen 800 MG tabletIndicatio ns:Flank pain TAKE 1 TABLET BY MOUTH 3 TIMES DAILY. 90 tablet 08/28/19 23 Active glucose 4 g chewable tabletIndicatio ns:Hypoglycemia Chew 4 tablets (16 g) if needed for low blood sugar. 50 tablet 12 09/27/19 23 Active Blood Glucose Monitoring Suppl (FreeStyle Lite) w/Device kitIndications: Hypoglycemia 1 EACH IF NEEDED (IF DIZZINESS/DONTAE MOR). 1 kit 09/28/19 23 Active Alcohol Swabs (Alcohol Pads) 70 % padsIndications :Hypoglycemia TO use as needed prior to checking your blood sugar. 100 each 3 10/03/19 23 Active fexofenadine (Park) 180 MG tabletIndicatio ns:Seasonal allergies Take 1 tablet (180 mg) by mouth if needed each day (Allergies). 30 tablet 11 05/31/19 24 Active Semaglutide-Mckinley ght Management (Wegovy) 0.25 MG/0.5ML solution auto-injector 0.25 mg once a week. 2 mL 3 08/27/19 24 Active EPINEPHrine (EpiPen 2-Christopher) 0.3 MG/0.3ML injection syringe Inject 0.3 mg into the shoulder, thigh, or buttocks. 03/09/20 23 Active norethindrone (Micronor) 0.35 MG tablet Take 1 tablet by mouth Once per day. 12/17/19 23 Active amLODIPine (Norvasc) 5 MG tabletIndicatio ns:Essential hypertension Take 1 tablet (5 mg) by mouth Once per day. 30 tablet 07/28/19 25 026 Active B Complex Vitamins (Vitamin B Complex) capsuleIndicati ons:Tongue burning sensation Take 1 capsule by mouth in the morning. 30 each 01/16/20 25 Active fluticasone (Flonase) 50 MCG/ACT nasal sprayIndication s:Seasonal allergies Administer 1 spray into each nostril 2 times daily. Shake gently. Before first use, prime pump. After use, clean tip and replace cap. 48 mL 01/16/20 25 Active hydrOXYzine HCl (Atarax) 50 MG tabletIndicatio ns:Primary insomnia 1 to 2 tabs at bedtime 60 tablet 01/16/20 25 Active Ketotifen Fumarate 0.035 % solutionIndicat ions:Seasonal allergies ADMINISTER 1 DROP INTO BOTH EYES 2 TIMES DAILY. 10 mL 3 09/24/19 24 025 Discontinued(R eorder (will not trigger notification to Pharmacy)) B Complex Vitamins (Vitamin B Complex) capsuleIndicati ons:Tongue burning sensation TAKE 1 CAPSULE BY MOUTH EVERY MORNING 30 each 09/30/19 24 025 Discontinued(R eorder (will not trigger notification to Pharmacy)) hydrOXYzine HCl (Atarax) 50 MG tabletIndicatio ns:Primary insomnia 1 to 2 tabs at bedtime 60 tablet 3 01/13/20 24 025 Discontinued(R eorder (will not trigger notification to Pharmacy)) fluticasone (Flonase) 50 MCG/ACT nasal sprayIndication s:Seasonal allergies USE 1-2 SPRAYS INTO EACH NOSTRIL IN THE MORNING. SHAKE GENTLY. BEFORE FIRST USE, PRIME PUMP. AFTER USE, CLEAN TIP AND REPLACE CAP. 48 mL 3 05/25/20 24 025 Discontinued(R eorder (will not trigger notification to Pharmacy)) Phentermine-Top iramate 3.75-23 MG capsule sustained-relea se 24 hrIndications:C lass 2 obesity due to excess calories without serious comorbidity with body mass index (BMI) of 35.0 to 35.9 in adult One tab a day 30 capsule 1 07/28/19 25 025 Discontinued(E xpired) Ketotifen Fumarate 0.035 % solutionIndicat ions:Seasonal allergies Administer 1 drop into both eyes 2 times daily for 15 days. 10 mL 3 01/16/20 25 025 Active Problems Problem Noted Date Diagnosed Date COVID-19 07/02/2022 Essential hypertension 07/02/2022 Cyst of uterus 09/08/2018 Multiple joint pain 11/13/2011 Obesity 10/23/2011 Encounters Date Type Department Care Team Description 02/02/2025 Orders Only [facility] MED & PEDS [address] [place] [address] Alexus Johnson MD Essential hypertension (Primary Dx) 01/26/2025 Orders Only [facility] MED & PEDS [address] [place] [address] ProviderMonie MD 01/15/2025 4:00 PM EDT Office Visit [facility] MED & PEDS [address] [place] [address] Alexus Johnson MD Essential hypertension (Primary Dx); Class 2 obesity due to excess calories without serious comorbidity with body mass index (BMI) of 35.0 to 35.9 in adult; Tongue burning sensation; Seasonal allergies; Primary insomnia 01/15/2025 Travel 01/14/2025 Telephone [facility] MED & PEDS [address] [place] [address] Alexus Johnson MD from Last 3 Months Immunizations Immunization Administration Dates Next Due Tdap 07/27/2024,03/17/2010 Family History Medical History Relation Name Comments Diabetes Mother Hypertension Mother Relation Name Status Comments Mother Social History Tobacco Use Types Packs/Day Years Used Date Smoking Tobacco: Never Passive Smoke Exposure: Never Tobacco Cessation:Counseling Given: No Alcohol Use Standard Drinks/Week Comments Never 0 [...] Sign Reading Time Taken Comments Blood Pressure 156/90 01/15/2025 3:55 PM EDT Pulse 86 01/15/2025 3:55 PM EDT Temperature 36.8 C (98.2 F) 01/15/2025 3:55 PM EDT Respiratory Rate 20 01/15/2025 3:55 PM EDT Oxygen Saturation 98% 01/15/2025 3:55 PM EDT Inhaled Oxygen Concentration - - Weight 84.4 kg (186 lb) 01/15/2025 3:55 PM EDT Height 154 cm (5' 0.63 ) 01/15/2025 3:55 PM EDT Body Mass Index 35.57 01/15/2025 3:55 PM EDT Plan of Treatment Upcoming Encounters Date Type Department Care Team (Late st Contact Info) Description 02/23/2025 3:00 PM EDT Clinical Support [facility] MED & PEDS [address] [place] [address] Health Maintenance Due Date Last Done Comments CT Colonography 1969 Colonoscopy 1969 Colorectal Cancer Screening 1969 FIT DNA/Cologuard 1969 FIT 1969 FOBT 1969 HIV Screening 1969 Sigmoidoscopy 1969 Hepatitis B Vaccines (1 of 3 - 19+ 3-dose series) 1988 Zoster Vaccines (1 of 2) 12/30/2019 Cervical Cancer Screening 04/23/2023 HPV/Cotest 04/23/2023 04/23/2022, 08/17/2019 Pap Smear 04/23/2023 04/23/2022, 08/17/2019 COVID-19 Vaccine (2023- season) 2025 Influenza Vaccine (#1) 2025 Mammogram 07/24/2025 01/23/2025, 12/25, 08/02/2023, Additional history exists Pneumococcal Vaccine: 50+ Years (1 of 1 - PCV) 07/27/2025 Postponed from 12/30/2019 (Patient Refused) Alcohol/Substance Use Screening 01/15/2026 01/15/2025 Depression Screening 01/15/2026 01/15/2025, 01/16/20 25 Disability Screening 01/15/2026 01/15/2025 SDOH Screening 01/15/2026 01/15/2025 Tobacco Screening 01/15/2026 01/15/2025 Lipid Panel 01/18/2026 01/18/2021, 01/13/2020 DTaP/Tdap/Td Vaccines [...] patient's age to complete this topic Meningococcal B Vaccine Aged Out No l onger eligible based on patient's age to complete [...] Procedure Name Priority Date/Time Associated Diagnosis Comments MAMMOGRAPHY Routine 01/23/2025 11:46 AM EDT PAP/HPV Routine 04/23/2022 LIPID PANEL, STANDARD Routine 01/18/2021 8:32 AM EDT [facility] HISTORICAL HEPATITIS C AB W/REFL TO HCV RNA, QN, PCR Routine 02/11/2020 9:32 AM EDT from Last 3 Months or Most Recently Relevant to Health Maintenance Results * Mammography (01/23/2025 11:46 AM EDT) Anatomical Region Laterality Modality Other Historical Provider HEALTH MAINTENANCE Final Result * Pap Smear (04/23/2022) Pap Negative for intraephithelial lesion or malignancy Negative for intraephithelial lesion or malignancy, Other HPV Undetected Undetected, Indeterminate, Quantitative, Not Detected Historical Provider MD HEALTH MAINTENANCE Final Result * (ABNORMAL) LIPID PANEL, STANDARD (01/18/2021 8:32 AM EDT) Chol/HDLC Ratio 3.4 <5.0 (calc) [facility] Cholesterol, Total 208(H) <200 mg/dL [facility] HDL Cholesterol 61 > OR = 50 mg/dL [facility] LDL Cholesterol 121(H) mg/dL (calc) [facility] Comment: Reference range: <100 Desirable range <100 mg/dL for primary prevention; <70 mg/dL for patients with CHD or diabetic patients with > or = 2 CHD risk factors. LDL-C is now calculated using the Reji-Saunders calculation, which is a validated novel method providing better accuracy than the Friedewald equation in the estimation of LDL-C. Reji SS et al. KIARRA. 2013;310(19): 3389-9539 (http://education.Yub.Vidmind/faq/VNZ936) Non-HDL Cholesterol 147(H) <130 mg/dL (calc) [facility] Comment: For patients with diabetes plus 1 major ASCVD risk factor, treating to a non-HDL-C goal of <100 mg/dL (LDL-C of <70 mg/dL) is considered a therapeutic option. Triglycerides 147 <150 mg/dL [facility] 01/18/2021 8:32 AM EDT Alexus Johnson MD LAB BLOOD ORDERABLES Final Result [facility] [address] * HEPATITIS C AB W/REFL TO HCV RNA, QN, PCR (02/11/2020 9:32 AM EDT) HEPATITIS C ANTIBODY NON-REACT ZENAIDA NON-REACT ZENAIDA [facility] INDEX 0.01 <1.00 [facility] Comment: HCV antibody was non-reactive. There is no laboratory evidence of HCV infection. In most cases, no further action is required. However, if recent HCV exposure is suspected, a test for HCV RNA (test code 82658) is suggested. For additional information please refer to http://education.Vaxart/faq/GLN61j9 (This link is being provided for informational/ educational purposes only.) 02/11/2020 9:32 AM EDT Alexus Johnson MD HISTORICAL/NON ORDERABLE LA BS Final Result [facility] [address] from Last 3 Months or Most Recently Relevant to Health Maintenance Insurance [facility] C3 Care Teams Coverage Analyst Relationship Specialty Start Date End Date Alexus Johnson MD [address] [facility] [place] [address] PCP - General Internal Medicine 06/03/13
[2025-02-02 14:13] LABS: MANUAL DIFF FLAG NO
[2025-02-02 14:33] LABS: Hematocrit 38.8 % (37.0-47.0); Hemoglobin 12.8 g/dl (12.0-16.0); Imm Gran Abs Auto 0.02 X10*3/uL (0.00-0.03); Imm Gran Pct Auto 0.3 % (0.0-0.4); Lymphocytes Absolute Auto 2.5 X10*3/uL (1.2-4.9); Mean Corpuscular HGB Conc 33.0 g/dl (31.0-35.0); Mean Corpuscular Hemoglobin 29.4 pg (27.0-33.0); Mean Corpuscular Volume 89.0 fL (80.0-98.0); NRBC Abs Auto 0.000 X10*3/uL (0.0-0.012); NRBC Pct Auto 0.0 /100WBC (0.0-0.2); Platelet Count 146 X10*3/uL (160-400); Red Blood Count 4.36 X10*6/uL (4.20-5.50); White Blood Count 7.0 X10*3/uL (4.8-10.8)
[2025-02-02 15:07] LABS: Alanine Aminotransferase 36 U/L (0-31); Albumin Level 4.5 g/dL (3.5-5.0); Alkaline Phosphatase 88 U/L (39-117); Anion Gap 12 (12-20); Aspartate Amino Transferase 38 U/L (5-31); Blood Urea Nitrogen 16 mg/dL (9-16); Calcium 8.9 mg/dL (8.4-10.2); Carbon Dioxide 24 mmol/L (22-29); Chloride 108 mmol/L (96-108); Cholesterol 164 mg/dL (<200); Estimated Glomerular Filt Rate > 60; HDL Cholesterol 49 mg/dL (>40); Potassium 4.4 mmol/L (3.3-5.1); Sodium 140 mmol/L (135-145); Total Protein 7.3 g/dL (6.5-8.0); Triglycerides 107 mg/dL (<150)
== END 2025-02-02 08:48 | disposition home or self-care (01) ==
LOC: HO.CHCLDS 08:47
PROVIDERS: PCP Internal Medicine; Visit Provider Internal Medicine
DX: I10 Essential (primary) hypertension (principal)
CPT/HCPCS: 36415; 80053; 80061; 84443; 85025